=== PATIENT | female | born 1950 | race Caucasian/White ===

== ENCOUNTER 2017-03-19 10:37 | Emergency (ER) | payer OTHER ==
[2017-03-19 10:46] VITALS: BP 141/81; PULSE 66; TEMP 98.3; BMI 27.4
--- NOTE | 2017-03-19 11:35 | PDOC ---
History of Present Illness - General Chief Complaint: Headache Stated Complaint: HEADACHE ON AND OFF 4 DAYS Time Seen by Provider: 03/19/17 10:42 - History of Present Illness Initial Comments: 03/19/17 12:41 Chief complaint: Headache History of present illness: Patient complains of a sharp lancinating pain in the left occipital scalp. The pain is momentary, resolving completely, but is episodic, recurrent for approximately 4 days. She has had zoster in this area but no skin lesions are apparent. Review of systems: Denies visual or focal neurologic symptoms, fever or chills, chest pain, shortness of breath, abdominal pain, nausea, vomiting, diarrhea. Remainder systems reviewed and found to be negative Past medical history: Healthy female, no active medical problems, no medication other than Advil for this pain Social/family history reviewed and noncontributory. Retired [employer] employee, no tobacco or drugs, occasional social alcohol, none recently. No early coronary artery disease in the family. No diabetes or neurologic disease Physical exam: Alert and oriented 3, well-developed well-nourished, no acute distress, cheerful and cooperative. No pain at present Head without lesions of the scalp, without point tenderness swelling or mass in the area of the recurrent pain without bruit mass or nodes. No point tenderness or deformity, full range of motion without pain Elevate 4 mm, fundi benign with sharp disc margins and good central venous pulsations, ENT clear C2 to 12 intact. Lungs clear to P&A CV regular without murmur rub or gallop Abdomen benign Neurologic C2 to 12 intact. No focal sensory or motor deficits. Gait stable and unimpaired. Strength full and symmetric. Cerebellum intact Impression: Occipital neuralgia, rule out intracranial lesion Plan: Head CT, further neurologic evaluation is indicated. 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) Disorders: No HTN: No Hypercholesterolemia: No Liver Disease: No Seizures: No Thyroid Disease: No - Surgical History Abdominal Surgery: No Appendectomy: No Cardiac Surgery: No Cholecystectomy: Yes Lung Surgery: No Neurologic Surgery: No Orthopedic Surgery: No - Psycho/Social/Smoking Cessation Hx Suicidal Ideation: No Smoking History: Never smoked Have you smoked in the past 12 months: No Information on smoking cessation initiated: No Hx Alcohol Use: No Drug/Substance Use Hx: No Substance Use Type: None Hx Substance Use Treatment: No *Physical Exam - Vital Signs Last Vital Signs Temp Pulse Resp BP Pulse Ox 98.3 F 66 16 141/81 100 03/19/17 10:38 03/19/17 10:38 03/19/17 10:38 03/19/17 10:38 03/19/17 10:38 Medical Decision Making - Medical Decision Making 03/19/17 12:46 CT scan is normal Patient is instructed to see her primary physician, consider referral to a neurologist, take pain medication as directed. Fully ambulatory and in no pain or other distress upon discharge to follow-up as directed *DC/Admit/Observation/Transfer Diagnosis at time of Disposition: Occipital neuralgia of left side - Discharge Dispostion Disposition: HOME Condition at time of disposition: Stable Admit: No - Patient Instructions Additional Instructions: See your doctor for further care as soon as possible. CT scan today is negative. This is unlikely an irritated nerve in your scalp. Return to ER if further symptoms develop. Pain medication as needed and directed by your doctor.
== END 2017-03-19 12:34 | disposition home or self-care (01) ==
LOC: FER 10:37
DX: M54.81 Occipital neuralgia (principal); Z85.41 Personal history of malignant neoplasm of cervix uteri; K52.0 Gastroenteritis and colitis due to radiation
CPT/HCPCS: 70450-TC; 99281-25